=== PATIENT | male | born 1950 | race Hispanic/Latino ===

== ENCOUNTER 2017-03-29 11:07 | Outpatient (CLI) | payer MEDICARE, BC ==
--- NOTE | 2017-03-29 12:32 | XRay Report ---
Right clavicle 2 views. History: Deformity on physical examination. Findings: There is no evidence of fracture or a.c. joint separation. Mild DJD is present. The 6 mm osseous density or calcification adjacent to the lateral end of the clavicle matter are present an old injury. Impression: No acute findings. Mild DJD of the a.c. joint.
== END 2017-03-29 11:08 | disposition home or self-care (01) ==
LOC: SPVIMAG 11:07
PROVIDERS: ATTEND Internal Medicine
DX: M19.011 Primary osteoarthritis, right shoulder (principal); M95.8 Other specified acquired deformities of musculoskeletal system

== ENCOUNTER 2017-04-06 16:00 | Outpatient (CLI) | payer MEDICARE ==
--- NOTE | 2017-04-06 16:43 | XRay Report ---
XRAY CHEST TWO VIEWS: 04/06/17 16:00:00 CLINICAL: Cough. COMPARISON: 10/18/11 FINDINGS: Normal heart and pulmonary vasculature.Mild patchy opacification in the right lung base with silhouetting of the right heart border on the frontal view. No corresponding abnormality on the lateral view. The right upper lobe is clear. The left lung is normally expanded and clear.Degenerative change in spine with flowing osteophytes. IMPRESSION: Suspect a mild right middle lobe pneumonia.
== END 2017-04-06 16:01 | disposition home or self-care (01) ==
LOC: SPVIMAG 16:00
PROVIDERS: ATTEND Internal Medicine
DX: R05 Cough (principal); M47.894 Other spondylosis, thoracic region; M25.78 Osteophyte, vertebrae
CPT/HCPCS: 71046

== ENCOUNTER 2017-04-14 09:41 | Outpatient (CLI) | payer MEDICARE ==
--- NOTE | 2017-04-14 11:29 | XRay Report ---
CHEST TWO VIEWS: 04/14/17 09:41:00 CLINICAL: Followup pneumonia. COMPARISON: 04/06/17 FINDINGS: The right heart border is slightly more distinct and there are slightly fewer streaky opacities in the right middle lobe on the frontal view. The lateral view is negative. The right upper lobe and the left lung are clear. Normal heart and pulmonary vessels. IMPRESSION: Right middle lobe pneumonia with improvement..
== END 2017-04-14 09:42 | disposition home or self-care (01) ==
LOC: SPVIMAG 09:41
PROVIDERS: ATTEND Internal Medicine
DX: J15.9 Unspecified bacterial pneumonia (principal)
CPT/HCPCS: 71046

== ENCOUNTER 2017-05-01 14:08 | Outpatient (CLI) | payer MEDICARE ==
--- NOTE | 2017-05-01 16:37 | XRay Report ---
XRAY CHEST TWO VIEWS: 05/01/17 14:08:00 CLINICAL: Followup pneumonia. COMPARISON: 04/14/17 FINDINGS: Continued improvement with very minimal residual right middle lobe opacity at the heart border on the frontal view.The lungs are otherwise clear. Normal heart and pulmonary vessels. IMPRESSION: Minimal residual right middle lobepneumonia.
== END 2017-05-01 14:09 | disposition home or self-care (01) ==
LOC: SPVIMAG 14:08
PROVIDERS: ATTEND Internal Medicine
DX: J15.9 Unspecified bacterial pneumonia (principal)
CPT/HCPCS: 71046

== ENCOUNTER 2017-07-05 10:31 | Outpatient (CLI) | payer MEDICARE | END 2017-07-05 10:32 | disposition home or self-care (01) | LOC: VAS 10:31 | PROVIDERS: ATTEND Internal Medicine Cardiovascular Disease | DX: M79.662 Pain in left lower leg (principal); R60.9 Edema, unspecified ==

== ENCOUNTER 2021-01-03 13:46 | Inpatient (IN) | payer MEDICARE ==
--- NOTE | 2021-01-03 14:24 | Emergency Department Report ---
HPI - General Chief Complaint: Arrhythmia/Palpitations Time Seen by Provider: 01/03/21 14:09 - HPI HPI: Room 4 The patient is a 70-year-old male present with a chief complaint of chest pain. The patient states he finished eating lunch when he developed tightness to the left upper chest that is been constant in nature. Patient denies shortness of breath, nausea/vomiting or diaphoresis with this pain. EMS was called and found the patient in A. fib with RVR with a heart rate of 180. The patient has a history of A. fib and states he has been compliant with his Eliquis. I gave verbal orders to administer amiodarone 150 mg IV over 10 minutes to EMS and upon arrival to the ED the patient's symptoms had improved but the chest pain decreasing to a 1/10 and his EKG showing A. fib rate controlled at 94 bpm. The patient states he cannot recall the last time he had a cardiac catheterization ED Past Medical Hx - Past Medical History Hx Hypertension: Yes Hx Diabetes: Yes Additional medical history: Parkinson's, atrial fibrillation - Surgical History Additional Surgical History: Cardiac ablation - Family History Family history: no significant - Social History Smoking Status: Never Smoker Substance Use Type: None (Denies illicit drug use) ED Review of Systems ROS: Stated complaint: CHEST PAIN/SOB Other details as noted in HPI Constitutional: denies: diaphoresis Eyes: denies: eye pain ENT: denies: throat pain Respiratory: denies: shortness of breath Cardiovascular: chest pain, palpitations Endocrine: no symptoms reported Gastrointestinal: denies: nausea, vomiting Musculoskeletal: denies: back pain Neurological: denies: headache Physical Exam - Physical Exam Vital Signs: Vital Signs 01/03/21 13:50 Temperature 98.2 F Pulse Rate 118 H Respiratory 16 Rate Blood Pressure 137/83 [Right] O2 Sat by Pulse 99 Oximetry Physical Exam: GENERAL: The patient is well-developed well-nourished male lying on stretcher not appearing to be in acute distress. [] HEENT: Normocephalic. Atraumatic. Extraocular motions are intact. Patient has moist mucous membranes. NECK: Supple. Trachea midline CHEST/LUNGS: Clear to auscultation. There is no respiratory distress noted. HEART/CARDIOVASCULAR: Irregularly irregular. There is no tachycardia. There is no gallop rub or murmur. ABDOMEN: Abdomen is soft, nontender. Patient has normal bowel sounds. There is no abdominal distention. SKIN: There is no rash. There is no edema. There is no diaphoresis. NEURO: The patient is awake, alert, and oriented. The patient is cooperative. The patient has no focal neurologic deficits. The patient has normal speech. GCS 15 MUSCULOSKELETAL: There is no evidence of acute injury. ED Course Vital Signs 01/03/21 13:50 Temperature 98.2 F Pulse Rate 118 H Respiratory 16 Rate Blood Pressure 137/83 [Right] O2 Sat by Pulse 99 Oximetry ED Medical Decision Making - Lab Data Result diagrams: 01/03/21 14:24 01/03/21 14:24 Laboratory Tests 01/03/21 01/03/21 01/03/21 14:24 14:24 14:24 WBC 6.8 RBC 3.58 L Hgb 11.7 L Hct 34.1 L MCV 95 H MCH 33 H MCHC 34 RDW 13.3 Plt Count 112 L Lymph % (Auto) 9.7 L Garrett % (Auto) 5.5 Eos % (Auto) 0.1 Baso % (Auto) 0.5 Lymph # (Auto) 0.7 L Garrett # (Auto) 0.4 Eos # (Auto) 0.0 Baso # (Auto) 0.0 Seg Neutrophils % 84.2 H Seg Neutrophils # 5.7 PT 16.2 H INR 1.25 H APTT 28.6 Sodium 138 Potassium 4.1 Chloride 101.0 Carbon Dioxide 19 L Anion Gap 22 BUN 18 Creatinine 1.2 Estimated GFR 60 BUN/Creatinine Ratio 15 Glucose 266 H Calcium 8.1 L Magnesium 1.10 L Total Creatine Kinase 69 CK-MB (CK-2) 3.1 CK-MB (CK-2) Rel Index 4.4 H Troponin T < 0.010 NT-Pro-B Natriuret Pep 881.5 TSH Free T4 01/03/21 14:24 WBC RBC Hgb Hct MCV MCH MCHC RDW Plt Count Lymph % (Auto) Garrett % (Auto) Eos % (Auto) Baso % (Auto) Lymph # (Auto) Garrett # (Auto) Eos # (Auto) Baso # (Auto) Seg Neutrophils % Seg Neutrophils # PT INR APTT Sodium Potassium Chloride Carbon Dioxide Anion Gap BUN Creatinine Estimated GFR BUN/Creatinine Ratio Glucose Calcium Magnesium Total Creatine Kinase CK-MB (CK-2) CK-MB (CK-2) Rel Index Troponin T NT-Pro-B Natriuret Pep TSH 3.940 Free T4 1.17 - EKG Data -: EKG Interpreted by Me Rate: normal - EKG Data When compared to previous EKG there are: previous EKG unavailable Interpretation: other (Atrial fibrillation at 94 bpm.) - Radiology Data Radiology results: report reviewed (Chest x-ray), image reviewed (Chest x-ray) interpreted by me: Chest x-ray-no definite focal infiltrates, no pneumothorax [facility] [address] [place] [address] XRay Report Signed Patient: PORSHA MURRAY III MR#: [id number] : [birth year] Acct:[id number] Age/Sex: 70 / M ADM Date: 01/03/21 Loc: ED Attending Dr: Ordering Physician: ADRI AGUILAR MD Date of Service: 01/03/21 Procedure(s): XR chest 1V ap Accession Number(s): [id number] cc: ADRI AGUILAR MD Fluoro Time In Minutes: . XR chest 1V ap INDICATION / CLINICAL INFORMATION: chest pain. COMPARISON: 05/01/2017 FINDINGS: SUPPORT DEVICES: None. HEART /PULMONARY VASCULATURE: No significant abnormality. LUNGS / PLEURA: No significant pulmonary or pleural abnormality. No pneumothorax. ADDITIONAL FINDINGS: No significant additional findings. IMPRESSION: 1. No acute findings. Signer Name: Abhilash Garcia MD Signed: 01/03/2021 3:02 PM Workstation Name: [id number] Transcribed By: JS Dictated By: ABHILASH GARCIA MD Electronically Authenticated By: ABHILASH GARCIA MD Signed Date/Time: 01/03/21 1502 DD/ 1501 TD/TT: Print Cancel - Differential Diagnosis A. fib with RVR, ACS, GERD, pericarditis Critical care attestation.: If time is entered above; I have spent that time in minutes in the direct care of this critically ill patient, excluding procedure time. ED Disposition Clinical Impression: Chest pain, Atrial fibrillation with rapid ventricular response Disposition: ADMITTED INPATIENT Is pt being admited?: Yes Does the pt Need Aspirin: Yes Condition: Fair Instructions: Nonspecific Chest Pain, Adult Time of Disposition: 16:29 (Hospitalist called (Dr. Denny)) Heart Score - HEART Score History: Moderately suspicious EKG: Non-specific Age: > 65 Risk factors: 1-2 risk factors Troponin: 1-3x normal limit HEART Score: 6 - EKG Read Time Time EKG Completed: 14:13 EKG Read Time: 14:26
[2021-01-03 14:38] LABS: Basophils % (Auto) 0.5 % (0.0-1.8); Eosinophils % (Auto) 0.1 % (0.0-4.3); Hematocrit 34.1 % (35.5-45.6); Hemoglobin 11.7 gm/dl (11.8-15.2); Lymphocytes # (Auto) 0.7 K/mm3 (1.2-5.4); Lymphocytes % (Auto) 9.7 % (13.4-35.0); Mean Corpuscular HGB Conc 34 % (32-34); Mean Corpuscular Volume 95 fl (84-94); Monocytes # (Auto) 0.4 K/mm3 (0.0-0.8); Monocytes % (Auto) 5.5 % (0.0-7.3); Platelet Count 112 K/mm3 (140-440); Red Blood Count 3.58 M/mm3 (3.65-5.03); Red Cell Distribution Width 13.3 % (13.2-15.2)
[2021-01-03 14:48] LABS: INR 1.25 (0.87-1.13); Partial Thromboplastin Time 28.6 Sec. (24.2-36.6)
[2021-01-03 15:04] LABS: Creatine Kinase MB 3.1 ng/mL (0.0-4.0)
[2021-01-03 15:05] LABS: BUN/Creatinine Ratio 15; Blood Urea Nitrogen 18 mg/dL (9-20); Calcium 8.1 mg/dL (8.4-10.2); Hemolysis Index 9
--- NOTE | 2021-01-03 15:06 | XRay Report ---
. XR chest 1V ap INDICATION / CLINICAL INFORMATION: chest pain. COMPARISON: 05/01/2017 FINDINGS: SUPPORT DEVICES: None. HEART /PULMONARY VASCULATURE: No significant abnormality. LUNGS / PLEURA: No significant pulmonary or pleural abnormality. No pneumothorax. ADDITIONAL FINDINGS: No significant additional findings. IMPRESSION: 1. No acute findings. Signer Name: Josh Garcia MD Signed: 01/03/2021 3:02 PM Workstation Name: [id number]
[2021-01-03 15:10] LABS: Free T4 (Free Thyroxine) 1.17 ng/dL (0.76-1.46)
[2021-01-03] MEDS ORDERED: ASPIRIN 325 MG TAB PO ONE (15:10)
--- NOTE | 2021-01-03 17:16 | History and Physical Report ---
History of Present Illness Chief complaint: My heart is pounding History of present illness: 70 YO Male with Atrial Fib on therapeutic anticoagulation with Eliquis, HTN, DM, Parkinsons disease presents to ED for evaluation. Pt reports" My heart is pounding". Pt states that he has experienced sudden onset chest palpitations and chest discomfort. Patient knowledges decreased exercise tolerance, dyspnea at rest. EMS was notified and upon arrival the patient was found to be in distress. The patient was found to have atrial fibrillation with rapid ventricular response with a heart rate in the 180s. Patient was treated with medical cardioversion with amiodarone and subsequent transported to [facility] for further care and evaluation of the aforementioned symptoms. The patient was seen and evaluated in the emergency department. All lab and imaging studies reviewed. Patient found to have EKG findings consistent with atrial fibrillation with controlled ventricular rate. Patient also found to have clinical symptoms consistent with CHF decompensation. Patient admitted to telemetry and initiated on CHF protocol. Cardiology team consulted in ED. Patient denies fever, chills, chest pain, productive cough, skin rash, recent ill contact, or known exposure to COVID-19. No prior admission for review. No medication listed at time of admission for reconciliation. Advanced care planning conducted in ED. Past History Past Medical History: atrial fib, diabetes, hypertension Past Surgical History: Other (Cardiac ablation) Social history: . denies: smoking, alcohol abuse Family history: hypertension Medications and Allergies Allergies Allergy/AdvReac Type Severity Reaction Status Date / Time metformin AdvReac Severe Diarrhea Unverified 11/12/13 15:43 simvastatin [From Zocor] AdvReac Mild SORES Unverified 11/12/13 15:43 Review of Systems Constitutional: no weight loss, no weight gain, no chills Ears, nose, mouth and throat: no ear pain, no tinnitis, no nasal congestion Cardiovascular: palpitations, no chest pain, no syncope, no shortness of breath, no dyspnea on exertion Respiratory: no cough, no excessive sputum, no shortness of breath, no dyspnea on exertion Gastrointestinal: no abdominal pain, no nausea, no vomiting, no diarrhea, no constipation Genitourinary Male: no hematuria, no flank pain, no discharge, no urinary frequency, no nocturia Musculoskeletal: no neck stiffness, no neck pain, no shooting arm pain Integumentary: no rash, no pruritis, no redness, no sores, no wounds Neurological: no head injury, no paralysis, no weakness, no numbness, no seizures, no syncope, no tremors Psychiatric: no anxiety, no memory loss, no insomnia, no hypersomnia, no change in libido Endocrine: no cold intolerance, no polyphagia, no excessive thirst, no polydipsia, no polyuria, no nocturia Hematologic/Lymphatic: no easy bruising, no easy bleeding, no lymphadenopathy, no lymphedema Allergic/Immunologic: no urticaria, no allergic rhinitis, no persistent infections, no anaphylaxis Exam - Constitutional Vitals: Temp Pulse Resp BP Pulse Ox 98.2 F 103 H 21 128/74 100 01/03/21 13:50 01/03/21 14:35 01/03/21 14:31 01/03/21 14:31 01/03/21 14:31 General appearance: Present: mild distress - EENT Eyes: Present: PERRL ENT: hearing intact, clear oral mucosa - Neck Neck: Present: supple, normal ROM - Respiratory Respiratory effort: normal Respiratory: bilateral: CTA - Cardiovascular Rhythm: irregularly irregular Heart Sounds: Present: S1 & S2. Absent: rub, click - Extremities Extremities: pulses symmetrical, No edema Peripheral Pulses: within normal limits - Abdominal General gastrointestinal: Present: soft, non-tender, non-distended, normal bowel sounds Male genitourinary: Present: normal - Integumentary Integumentary: Present: clear, warm, dry - Musculoskeletal Musculoskeletal: gait normal, strength equal bilaterally - Psychiatric Psychiatric: appropriate mood/affect, intact judgment & insight - Neurologic Neurologic: CNII-XII intact, moves all extremities HEART Score - HEART Score EKG: Non-specific Age: > 65 Risk factors: 1-2 risk factors Troponin: Troponin T < 0.010 ng/mL (0.00-0.029) 01/03/21 14:24 Troponin: 1-3x normal limit Results - Labs CBC & Chem 7: 01/03/21 14:24 01/03/21 14:24 Labs: Abnormal lab results 01/03/21 01/03/21 01/03/21 Range/Units 14:24 14:24 14:24 RBC 3.58 L (3.65-5.03) M/mm3 Hgb 11.7 L (11.8-15.2) gm/dl Hct 34.1 L (35.5-45.6) % MCV 95 H (84-94) fl MCH 33 H (28-32) pg Plt Count 112 L (140-440) K/mm3 Lymph % (Auto) 9.7 L (13.4-35.0) % Lymph # (Auto) 0.7 L (1.2-5.4) K/mm3 Seg Neutrophils % 84.2 H (40.0-70.0) % PT 16.2 H (12.2-14.9) Sec. INR 1.25 H (0.87-1.13) Carbon Dioxide 19 L (22-30) mmol/L Glucose 266 H (75-100) mg/dL Calcium 8.1 L (8.4-10.2) mg/dL Magnesium 1.10 L (1.7-2.3) mg/dL CK-MB (CK-2) Rel Index 4.4 H (0-4) Assessment and Plan - Patient Problems (1) Atrial fibrillation with rapid ventricular response Current Visit: Yes Status: Acute Plan to address problem: Medical cardioversion with amiodarone, cardiology team consulted, continue medical management. Telemetry monitoring. Therapeutic anticoagulation with Eliquis, rate control with Cardizem 30 mg p.o. every 6 hours (2) Diastolic CHF Current Visit: Yes Status: Acute Qualifiers: Heart failure chronicity: acute Qualified Code(s): I50.31 - Acute diastolic (congestive) heart failure Plan to address problem: Strict I/O, blood pressure control, daily weight, monitor fluid balance, afterload reduction, blood pressure control, echocardiogram ordered and is pending at time of admission, cardiology team consulted. Thyroid panel, magnesium level. (3) Acidosis Current Visit: Yes Status: Acute Plan to address problem: Supportive care, BMP, repeat BMP in a.m. (4) HLD (hyperlipidemia) Current Visit: Yes Status: Acute Qualifiers: Hyperlipidemia type: mixed hyperlipidemia Qualified Code(s): E78.2 - Mixed hyperlipidemia Plan to address problem: Low-cholesterol diet, risk factor reduction, lipid panel. (5) DVT prophylaxis Current Visit: Yes Status: Acute Plan to address problem: SCD to bilateral lower extremities while in bed, continue therapeutic anticoagulation (6) Advance care planning Current Visit: Yes Status: Acute Plan to address problem: Disease education conducted, care plan discussed, diagnoses discussed, prognosis discussed, patient is full code, patient knowledges understanding and agreement with care plan, +30 minutes.
[2021-01-03] MEDS ORDERED: oxyCODONE /ACETAMINOPHEN 5-325MG TAB PO PRN (17:19)
[2021-01-03] MEDS ORDERED: ACETAMINOPHEN 325 MG TAB PO PRN (17:19)
[2021-01-03] MEDS ORDERED: ONDANSETRON 4 MG/2 ML INJ IV PRN (17:19)
[2021-01-03] MEDS ORDERED: HYDROmorphone 1 MG/1 ML INJ IV PRN (17:19)
[2021-01-03] MEDS ORDERED: ALBUTEROL 2.5 MG/3 ML NEBU IH PRN (17:19)
[2021-01-03 21:23] LABS: Hematocrit 34.2 % (35.5-45.6); Hemoglobin 11.8 gm/dl (11.8-15.2); Mean Corpuscular HGB Conc 35 % (32-34); Mean Corpuscular Volume 96 fl (84-94); Platelet Count 140 K/mm3 (140-440); Red Blood Count 3.58 M/mm3 (3.65-5.03); Red Cell Distribution Width 13.3 % (13.2-15.2)
[2021-01-03 21:32] LABS: INR 1.22 (0.87-1.13)
[2021-01-03 21:33] LABS: Partial Thromboplastin Time 30.2 Sec. (24.2-36.6)
[2021-01-04] MEDS: dilTIAZem 30 MG TAB PO SCH ×4 (02:42→17:31)
[2021-01-04] MEDS: APIXABAN 5 MG TAB PO SCH ×2 (02:43→10:05)
[2021-01-04 06:55] LABS: BUN/Creatinine Ratio 16
[2021-01-04 07:00] LABS: Blood Urea Nitrogen 17 mg/dL (9-20); Calcium 8.2 mg/dL (8.4-10.2); Hemolysis Index 4
--- NOTE | 2021-01-04 13:41 | Consultation ---
History of Present Illness Consult date: 01/04/21 Consult reason: atrial fibrillation History of present illness: Patient is a 70-year-old man with a history of paroxysmal atrial fibrillation, who has had previous atrial fibrillation ablation and is currently on medical therapy including oral anticoagulation with Eliquis. He also has a history of coronary artery disease and prior coronary stent. He follows up regularly with his skid machine operator in [place]. Patient presents now to this hospital with acute onset palpitations, and in the ambulance was found to have rapid atrial fibrillation. This was treated with intravenous amiodarone, he was brought to the emergency room, evaluated and admitted for further management. His atrial fibrillation has resolved at this time, he is in a stable sinus rhythm following medical management. He has no further symptoms and looks and feels well, wants to go home. There is no chest pain, no unusual shortness of breath, no lower extremity edema. ECG on presentation was atrial fibrillation with no ST or T wave changes of ischemia. Today he is in a stable sinus rhythm at 70 on surveillance monitor. Chest x-ray reveals normal-sized cardiac silhouette and clear lungs. There is no heart failure or interstitial edema. Past History Past Medical History: atrial fib, CAD, diabetes, hypertension Past Surgical History: PTCA, Other (Atrial fibrillation ablation) Social history: . denies: smoking, alcohol abuse Family history: hypertension Medications and Allergies Allergies Allergy/AdvReac Type Severity Reaction Status Date / Time metformin AdvReac Severe Diarrhea Unverified 11/12/13 15:43 simvastatin [From Zocor] AdvReac Mild SORES Unverified 11/12/13 15:43 Active Meds: Active Medications Acetaminophen (Acetaminophen 325 Mg Tab) 650 mg PO Q4H PRN PRN Reason: Pain MILD(1-3)/Fever >100.5/DIALLO Last Admin: 01/04/21 02:43 Dose: 650 mg Documented by: Albuterol (Albuterol 2.5 Mg/3 Ml Nebu) 2.5 mg IH Q4HRT PRN PRN Reason: Shortness Of Breath Apixaban (Apixaban 5 Mg Tab) 5 mg PO Q12HR [place]; Protocol Last Admin: 01/04/21 10:05 Dose: 5 mg Documented by: Diltiazem HCl (Diltiazem 30 Mg Tab) 30 mg PO Q6HR [place] Last Admin: 01/04/21 12:41 Dose: 30 mg Documented by: Hydromorphone HCl (Hydromorphone 1 Mg/1 Ml Inj) 0.5 mg IV Q23H PRN PRN Reason: Pain , Severe (7-10) Ondansetron HCl (Ondansetron 4 Mg/2 Ml Inj) 4 mg IV Q8H PRN PRN Reason: Nausea And Vomiting Oxycodone/Acetaminophen (Oxycodone /Acetaminophen 5-325mg Tab) 1 tab PO Q16H PRN PRN Reason: Pain, Moderate (4-6) Sodium Chloride (Sodium Chloride 0.9% 10 Ml Flush Syringe) 10 ml IV BID [facility] Last Admin: 01/04/21 10:05 Dose: 10 ml Documented by: Sodium Chloride (Sodium Chloride 0.9% 10 Ml Flush Syringe) 10 ml IV PRN PRN PRN Reason: LINE FLUSH Review of Systems Cardiovascular: palpitations, rapid/irregular heart beat, shortness of breath, no chest pain, no orthopnea, no edema, no syncope, no lightheadedness Physical Examination Vital Signs Temp Pulse Resp BP Pulse Ox 98.2 F 118 H 16 137/83 99 01/03/21 13:50 01/03/21 13:50 01/03/21 13:50 01/03/21 13:50 01/03/21 13:50 General appearance: no acute distress HEENT: Positive: PERRL Neck: Positive: neck supple Cardiac: Positive: Reg Rate and Rhythm Lungs: Positive: Decreased Breath Sounds Neuro: Positive: Grossly Intact Abdomen: Positive: Soft Male genitourinary: Positive: deferred Extremities: Absent: edema Results 01/03/21 20:25 01/04/21 06:02 Cardiac Enzymes 01/03/21 Range/Units 14:24 CK-MB (CK-2) 3.1 (0.0-4.0) ng/mL Coagulation 01/03/21 01/03/21 Range/Units 14:24 20:25 PT 16.2 H 15.9 H (12.2-14.9) Sec. INR 1.25 H 1.22 H (0.87-1.13) APTT 28.6 30.2 (24.2-36.6) Sec. CBC 01/03/21 01/03/21 Range/Units 14:24 20:25 WBC 6.8 7.4 (4.5-11.0) K/mm3 RBC 3.58 L 3.58 L (3.65-5.03) M/mm3 Hgb 11.7 L 11.8 (11.8-15.2) gm/dl Hct 34.1 L 34.2 L (35.5-45.6) % Plt Count 112 L 140 (140-440) K/mm3 Lymph # (Auto) 0.7 L (1.2-5.4) K/mm3 [place] # (Auto) 0.4 (0.0-0.8) K/mm3 Eos # (Auto) 0.0 (0.0-0.4) K/mm3 Baso # (Auto) 0.0 (0.0-0.1) K/mm3 Comprehensive Metabolic Panel 01/03/21 01/03/21 01/04/21 Range/Units 14:24 20:25 06:02 Sodium 138 138 (137-145) mmol/L Potassium 4.1 3.9 (3.6-5.0) mmol/L Chloride 101.0 101.7 (98-107) mmol/L Carbon Dioxide 19 L 22 (22-30) mmol/L BUN 18 17 (9-20) mg/dL Creatinine 1.2 1.2 0.9 (0.8-1.3) mg/dL Glucose 266 H 136 H (75-100) mg/dL Calcium 8.1 L 8.2 L (8.4-10.2) mg/dL EKG interpretations - Telemetry EKG Rhythm: Atrial Fibrillation Assessment and Plan - Patient Problems (1) Atrial fibrillation with rapid ventricular response Current Visit: Yes Status: Acute Plan to address problem: Patient has paroxysmal atrial fibrillation, status post previous atrial fibrillation of ablation, on medical therapy including amiodarone and oral anticoagulation with Eliquis. Patient has returned to a stable sinus rhythm, stable for cardiac discharge, continue outpatient medications as directed and follow-up with his primary skid machine operator in 5 to 7 days.
--- NOTE | 2021-01-04 15:17 | Discharge Summary ---
Providers - Providers Date of Admission: 01/03/21 17:19 Date of discharge: 01/04/21 Attending physician: VALDEMAR LANZA 01/03/21 17:19 Consult to Physician [CONS] Routine Comment: Consulting Provider: MILES PENG Physician Instructions: Reason For Exam: chf/a fib Primary care physician: EVERARDO SORIANO Hospitalization Condition: Fair Hospital course: 70 YO Male with Atrial Fib on therapeutic anticoagulation with Eliquis, HTN, DM, Parkinsons disease presents to ED for evaluation. Pt reports" My heart is pounding". There is no chest pain, no unusual shortness of breath, no lower extremity edema. ECG on presentation was atrial fibrillation with no ST or T wave changes of ischemia. Today he is in a stable sinus rhythm at 70 on personnel monitor. Chest x-ray reveals normal-sized cardiac silhouette and clear lungs. There is no heart failure or interstitial edema. Patient has paroxysmal atrial fibrillation, status post previous atrial fibrillation of ablation, on medical therapy including amiodarone and oral anticoagulation with Eliquis. Patient has returned to a stable sinus rhythm, stable for cardiac discharge, continue outpatient medications as directed and follow-up with his primary consultant teacher in 5 to 7 days. Disposition: 01 HOME / SELF CARE / HOMELESS Final Discharge Diagnosis (Prints w/discharge instructions): --Atrial fibrillation with rapid ventricular response. --HTN,. --DM type 2. -- Parkinsons disease Time spent for discharge: 34 minutes Core Measure Documentation - Palliative Care Palliative Care/ Comfort Measures: Not Applicable - Core Measures Any of the following diagnoses?: none Exam - Constitutional Vitals: Temp Pulse Resp BP Pulse Ox 98.0 F 62 18 155/74 98 01/04/21 08:36 01/04/21 08:45 01/04/21 11:48 01/04/21 12:41 01/04/21 11:48 Plan Activity: advance as tolerated Weight Bearing Status: Non-Weight Bearing Diet: low fat, low salt Follow up with: ANANTH BARKLEY MD [Referring] - 3-5 Days MILES PENG MD [Staff Physician] - 7 Days Prescriptions: dilTIAZem [Cardizem] 30 mg PO Q6HR #120 tablet Apixaban [Eliquis] 5 mg PO Q12HR #60 tablet
[2021-01-04 17:31] VITALS: BP 127/66
--- NOTE | 2021-01-05 11:20 | Electrocardiograph Report ---
[facility] Test Date: 2021-01-03 Test Time: 14:13:45 Pat Name: PORSHA MURRAY III Department: Room: A483 1 Gender: M Deboner: ELIE : 1950 Requested By: ADRI AGUILAR Order Number: [id number] Reading MD: Kimber Britton Measurements Intervals [place] Rate: 94 P: HI: QRS: 12 QRSD: 83 T: 242 QT: 365 QTc: 458 Interpretive Statements Atrial fibrillation No previous ECG available for comparison Electronically Signed On 01-05-2021 11:19:40 EDT by Kimber Britton
== END 2021-01-04 18:06 | disposition home or self-care (01) | DRG 308 ==
LOC: ED 13:46 → 4A 17:19
PROVIDERS: ADMIT Internal Medicine; ATTEND Internal Medicine
DX: I48.0 Paroxysmal atrial fibrillation (principal); I50.33 Acute on chronic diastolic (congestive) heart failure; I11.0 Hypertensive heart disease with heart failure; E78.5 Hyperlipidemia, unspecified; I25.10 Atherosclerotic heart disease of native coronary artery without angina pectoris; E11.9 Type 2 diabetes mellitus without complications; G20 Parkinson's disease; Z79.01 Long term (current) use of anticoagulants; Z82.49 Family history of ischemic heart disease and other diseases of the circulatory system; Z88.8 Allergy status to other drugs, medicaments and biological substances; Z79.899 Other long term (current) drug therapy
CPT/HCPCS: 36415; 71045; 80048; 82550; 82553; 82565; 83735; 83880; 84439; 84443; 84484; 85025; 85027; 85610; 85730; 93005; G0378